=== PATIENT | female | born 1970 | race Caucasian/White ===

== ENCOUNTER → 2017-06-15 | Outpatient (CLI) | payer OTHER ==
--- NOTE | 2017-06-16 08:56 | MM ---
Reason for exam: additional evaluation requested from prior study. Baseline mammogram. History: Family history of breast cancer in maternal cousin at age 40. Physical Findings: Nurse did not find any significant physical abnormalities on exam. MG Diagnostic Mammo w CAD GIANNI Bilateral CC and MLO view(s) were taken. The breast tissue is heterogeneously dense. This may lower the sensitivity of mammography. There are rounded masses in the right upper outer quadrant at posterior depth, left upper outer quadrant at posterior depth and left upper inner quadrant at anterior depth. These results were verbally communicated with the patient and result sheet given to the patient on 06/15/17. ASSESSMENT: Incomplete: need additional imaging evaluation, BI-RAD 0 RECOMMENDATION: Ultrasound of both breasts. (left upper and right upper outer quadrant)
--- NOTE | 2017-06-16 09:21 | USB ---
Reason for exam: additional evaluation requested from abnormal screening. History: Family history of breast cancer in maternal cousin at age 40. US Breast Limited BILAT Right breast ultrasound demonstrates a 0.8 x 0.4 x 0.8cm oval questionable node at 9 o'clock and a 0.6 x 0.3 x 0.5cm oval node at 9 o'clock. Left breast ultrasound demonstrates a 0.6 x 0.5 x 0.5cm cystic lesion at 9 o'clock, a 0.5 x 0.3 x 0.4cm mixed lesion at the posterior nipple irregular margins and no increase through transmission and a 0.7 x 0.4 x 0.6cm node at 3 o'clock. These results were verbally communicated with the patient and result sheet given to the patient on 06/15/17. ASSESSMENT: Suspicious, BI-RAD 4 RECOMMENDATION: Ultrasound core biopsy of the left breast. (posterior to nipple) Called Dr. Loco with mammographic findings and has scheduled an appointment for the patient for 07/23/17 at 9:[address] Shelley. Biopsy scheduled for 06/24/17 at 1:00. PRELIMINARY REPORT CALLED AND FAXED TO DR. SHELLEY ON 06/16/17.
== END | disposition home or self-care (01) ==
LOC: RADMAMWWP 12:09
PROVIDERS: ATTEND Family Medicine
DX: N63.10 Unspecified lump in the right breast, unspecified quadrant (principal); N63.20 Unspecified lump in the left breast, unspecified quadrant
CPT/HCPCS: 77066

== ENCOUNTER → 2017-06-24 | Day surgery (SDC) | payer OTHER ==
[2017-06-24 12:21] VITALS: RESP 15; TEMP 98.3; BMI 29.9
--- NOTE | 2017-06-24 15:42 | USB ---
EXAMINATION TYPE: US biopsy breast VAD LT, Postbiopsy MG diagnostic mammo LT wo CAD DATE OF EXAM: 06/24/2017 CLINICAL HISTORY: 46-year-old female R92.8 Abnormal mammogram. TECHNIQUE: Ultrasound guided core biopsy of the subareolar left breast. COMPARISON: 06/15/2017 FINDINGS: The procedure of ultrasound guided core biopsy was explained to the patient. Benefits, alternatives, and risks were discussed. An informed consent was then obtained. The patient was placed in supine positioning for imaging and for the procedure. The overlying skin was prepped and draped in usual sterile fashion. Lidocaine buffered with bicarbonate was used as anesthetic into the skin and subcutaneous tissue up to area of concern in the subareolar left breast. Under ultrasound guidance, a 13-gauge vacuum-assisted mammotome Elite biopsy gun device was used to obtain 4 core samples. Following this, a ribbon clip was left at the site of biopsy. The majority if not all of the lesion, which is suspected to be cystic, was removed with the multiple samples. The patient tolerated the procedure well without any immediate complication. The patient was kept in the radiology department for short stay after the procedure and then discharged home in stable condition. Postbiopsy mammogram shows ribbon clip in position 3:00 subareolar region. IMPRESSION: Successful, uncomplicated ultrasound guided core biopsy of suspected cystic lesion in the subareolar left breast, full pathology results to follow. Pathology Results: Benign LEFT BREAST, SITE NOT OTHERWISE SPECIFIED (CORE BIOPSIES): PROLIFERATIVE FIBROCYSTIC CHANGES. Recommendation Follow up mammogram of the left breast in 6 months. DAILY
[2017-06-24 16:27] VITALS: BP 109/68; PULSE 77
== END ==
LOC: RADUSWWP 11:26
PROVIDERS: ATTEND Surgery
DX: N60.12 Diffuse cystic mastopathy of left breast (principal)
CPT/HCPCS: 88305; 77065; 19083; A4648; J2001

== ENCOUNTER → 2017-09-14 | Outpatient (CLI) | payer OTHER ==
[2017-09-14 12:06] LABS: Basophils # (A) 0.1 k/uL (0-0.2); Basophils % (A) 1 %; Eosinophils # (A) 0.3 k/uL (0-0.7); Eosinophils % (A) 3 %; HCT 39.7 % (34.0-46.0); HGB 13.7 gm/dL (11.4-16.0); Lymphocytes # (A) 2.5 k/uL (1.0-4.8); Lymphocytes % (A) 25 %; MCH 30.8 pg (25.0-35.0); MCHC 34.4 g/dL (31.0-37.0); MCV 89.6 fL (80.0-100.0); Mean Platelet Volume 7.3; Monocytes # (A) 0.5 k/uL (0-1.0); Monocytes % (A) 5 %; Neutrophils # (A) 6.6 k/uL (1.3-7.7); Neutrophils % (A) 65 %; Platelet Count 237 k/uL (150-450); RBC 4.43 m/uL (3.80-5.40); RDW 13.8 % (11.5-15.5); WBC 10.1 k/uL (3.8-10.6)
== END | disposition home or self-care (01) ==
LOC: LABWHC1 11:21
PROVIDERS: ATTEND Obstetrics & Gynecology Obstetrics
DX: Z01.812 Encounter for preprocedural laboratory examination (principal); N93.8 Other specified abnormal uterine and vaginal bleeding
CPT/HCPCS: 36415; 85025

== ENCOUNTER 2017-09-29 09:03 | Day surgery (SDC) | payer OTHER ==
[2017-09-22 11:38] VITALS: BMI 30.7
--- NOTE | 2017-09-24 15:15 | HP ---
HISTORY AND PHYSICAL DATE OF SURGERY: 09/29/2017 HPI: This is a very pleasant 46-year-old female, 3, para 2-0-1-2 with known last menstrual period in August. Patient has been noticing dysfunctional uterine bleeding and was seen in the office for endometrial biopsy. Biopsy was performed without difficulty and came back negative in nature end of July. The patient is noting menstrual cycles to be every 2 weeks with moderate to heavy flow at times, lasting 5 days. She is noting some nausea at the time of her menstrual cycle secondary to the heavier flow days. She was interested in endometrial ablation. Therefore, this was scheduled at this appointment. PAST MEDICAL HISTORY: Significant for an abnormal Pap smear that was obtained in May of 2017, asthma, obesity. PAST SURGICAL HISTORY: Appendectomy and wisdom teeth extraction. REPRODUCTIVE HISTORY: She experienced menarche at age 11. She is a known 3, para 2-0-1-2. Menstrual cycles are noted to be irregular, approximately every 2 weeks with a heavy flow lasting 5 days when they do come. PHYSICAL EXAM: In general, she is in no acute distress. CARDIOVASCULAR: She is noted to have a regular rate and rhythm. PULMONARY: Clear to auscultation bilaterally. GENITOURINARY: External vaginal anatomy is noted to be normal in nature and appropriate for age. Vaginal vault is noted to be pink and well rugated. The cervix is without lesion. The uterus is noted to be normal in size, anteverted with no adnexal masses. ASSESSMENT: Dysfunctional uterine bleeding. PLAN: We will plan endometrial ablation, hysteroscopy, dilation and curettage to evaluate the uterine cavity prior to endometrial ablation. Risks were reviewed with the patient in detail including, but not limited to, uterine perforation, hematometra, and failure of the procedure itself. Pamphlet was given to the patient prior to her scheduling this procedure in addition. All questions were answered at this appointment, and informed consent was obtained. We will proceed with hysteroscopy, dilation and curettage, endometrial ablation. MMODL / IJN: [id number] /
[~2017-09-29 09:03] MED LIST: DEXAMETHASONE SOD PHOSPHATE 10 MG/ML 1 ML VIAL IV ONE; LIDOCAINE 1% 20 ML VIAL (10MG/ML) FOR IV START INTRADERMA PRN; ONDANSETRON 4 MG/2 ML VIAL IVP ONE; SCOPOLAMINE 1.5MG/72HR PATCH TRANSDERM ONE
[2017-09-29] MEDS: LACTATED RINGERS 1,000 ML IV SCH ×2 (09:55→10:59)
[2017-09-29] MEDS: ACETAMINOPHEN IV (For NPO) 1,000 MG in EMPTY BAG 1 BAG IVPB ONE ×2 (09:56→10:39)
[2017-09-29] MEDS ORDERED: KETOROLAC 30 MG/ML 1 ML VIAL ONE (11:01)
[2017-09-29] MEDS ORDERED: fentaNYL (PF) 50 MCG/ML 2 ML AMP ONE (11:01)
[2017-09-29] MEDS ORDERED: LIDOCAINE 1% INJ 10MG/ML (20 ML MDV) ONE (11:01)
[2017-09-29] MEDS ORDERED: HYDROmorphone (PF) 1 MG/ML ONE (11:01)
[2017-09-29] MEDS ORDERED: PROPOFOL 10 MG/ML 20 ML VIAL IV ONE (11:01)
[2017-09-29] MEDS ORDERED: MIDAZOLAM 2 MG/2 ML VIAL ONE (11:01)
[2017-09-29] MEDS ORDERED: SILVER NITRATE APPLICATOR 1 EACH STICK..EA. TOPICAL ONE (11:22)
[2017-09-29] MEDS: HYDROmorphone 0.5 MG/0.5 ML SYRINGE IVP PRN ×2 (11:50→11:59)
[2017-09-29 11:54] VITALS: TEMP 97.5
[2017-09-29 12:11] VITALS: RESP 16
--- NOTE | 2017-09-29 12:22 | P.OP ---
Date of Procedure: 09/29/17 Preoperative Diagnosis: Menomenorrhagia Postoperative Diagnosis: Same Procedure(s) Performed: Hysteroscopy, dilation and curettage, endometrial ablation with NovaSure Anesthesia: MAC Surgeon: Abbey Mcnulty Estimated Blood Loss (ml): 5 Urine output (ml): 100 Pathology: other (Endometrial curettings) Condition: stable Disposition: PACU Indications for Procedure: Heavy irregular menstrual cycles Operative Findings: Proliferative endometrial cavity Description of Procedure: Patient was seen in the preoperative suite and procedure and risks were reviewed in detail informed consent was obtained. Patient was then taken to the operating suite where general anesthesia was obtained without difficulty by the anesthesia department. She was then prepped and draped in the normal sterile fashion in the dorsal lithotomy position. A red rubber catheter was then used to drain the bladder of clear yellow urine. Weighted speculum was placed in the posterior vaginal vault the anterior lip of the cervix was visualized and grasped with a single-tooth tenaculum. Endocervical canal was then dilated to 18-Divehi hysteroscope was placed through the cervix and toward the endometrial cavity and a proliferative endometrium was noted. Sharp curettage was then performed until a gritty texture was noted in all 4 quadrants uterine cavity this was then sent to pathology for analysis. At this time the NovaSure device was opened and set to the patient's uterine measurements 4 cm length 2.74 with a power of 56 for a total time of 2 minutes. (This was completed after the cavity assessment was passed). The NovaSure device then removed without difficulty. Afterwards the tenaculum was taken off of the anterior lip of the cervix and hemostasis was noted. All counts are correct 2 patient tolerated procedure well and was taken to the recovery room awake and in stable condition.
[2017-09-29 14:27] VITALS: BP 132/78; PULSE 73
== END 2017-09-29 14:14 | disposition home or self-care (01) ==
LOC: OR 09:03
PROVIDERS: ATTEND Obstetrics & Gynecology Obstetrics
DX: N85.8 Other specified noninflammatory disorders of uterus (principal); N92.1 Excessive and frequent menstruation with irregular cycle; N93.8 Other specified abnormal uterine and vaginal bleeding; J45.909 Unspecified asthma, uncomplicated; E66.9 Obesity, unspecified; Z68.30 Body mass index [BMI] 30.0-30.9, adult; Z87.891 Personal history of nicotine dependence; N39.3 Stress incontinence (female) (male); Z79.899 Other long term (current) drug therapy
CPT/HCPCS: 81025; 88305; 58563; J2250; J1100; J2405; J2001; J3010; J1885; J1170 ×2; J0131; J2704

== ENCOUNTER → 2018-01-25 | Outpatient (CLI) | payer OTHER ==
--- NOTE | 2018-01-25 13:27 | MM ---
Reason for exam: follow-up at short interval from prior study. Last mammogram was performed 7 months ago. History: Family history of breast cancer in maternal cousin at age 40. Benign US biopsy breast VAD LT of the left breast, June 24, 2017. Physical Findings: Nurse did not find any significant physical abnormalities on exam. MG Diagnostic Mammo LT w CAD CC and MLO view(s) were taken of the left breast. Prior study comparison: June 24, 2017, left breast MG diagnostic mammo LT wo CAD. June 15, 2017, bilateral MG diagnostic mammo w CAD GIANNI. The breast tissue is heterogeneously dense. This may lower the sensitivity of mammography. Previous mammotome biopsy in the left breast. There is chronic nodularity in the left breast. No significant new findings when compared with previous films. These results were verbally communicated with the patient and result sheet given to the patient on 01/25/18. ASSESSMENT: Benign, BI-RAD 2 RECOMMENDATION: Routine screening mammogram of both breasts in 6 months. Back on schedule.
== END ==
LOC: RADMAMWWP 12:01
PROVIDERS: ATTEND Surgery
DX: R92.8 Other abnormal and inconclusive findings on diagnostic imaging of breast (principal)
CPT/HCPCS: 77065

== ENCOUNTER → 2018-07-02 | Outpatient (CLI) | payer OTHER ==
--- NOTE | 2018-07-03 22:14 | CT ---
EXAMINATION TYPE: CT abdomen pelvis w con DATE OF EXAM: 07/02/2018 COMPARISON: None INDICATION: Abdominal/pelvic pain and constipation x5 weeks. DLP: 1169 mGycm, Automated exposure control for dose reduction was used. CONTRAST: 100ml mL of Isovue 300. Study performed with Oral Contrast TECHNIQUE: Axial images were obtained from above the diaphragm to the pubic rami in the axial plane a t 5 mm thick sections. Reconstructed images are reviewed on the computer in the coronal plane. FINDINGS: Limited CT sections are obtained the lung bases. The lung bases are clear. CT ABDOMEN: Liver: Normal Spleen: Normal Pancreas: Normal Adrenal glands: The adrenal glands are normal. Gallbladder: Normal Kidneys: No masses are evident. No hydronephrosis is present. No cysts are present. Delayed images were obtained through the kidneys, which remain unremarkable. Aorta: Minimal Vascular calcification is within the aorta. Inferior vena cava: Normal. CT PELVIS: Loops of bowel within the abdomen and pelvis are normal. There are loops of bowel which are incom pletely distended or lack oral contrast limiting their evaluation. Cecum appears to be fluid-filled. Surgical clips from an appendectomy are present. Appendix: Surgically absent Urinary bladder: Normal. Genitourinary structures: Uterus is normal. Adnexal regions are normal. No free fluid is within the p karol. Osseous structures: No suspicious lytic or sclerotic lesions. IMPRESSIONS: 1. Nonspecific abdomen. No suspicious acute changes identified. 2. No significant fecal retention suggest constipation or obstruction.
== END ==
LOC: RADCTMAIN 15:36
PROVIDERS: ATTEND Family Medicine
DX: R10.9 Unspecified abdominal pain (principal)
CPT/HCPCS: 74177; Q9967

== ENCOUNTER 2018-07-10 18:53 | Emergency (ER) | payer OTHER ==
[2018-07-10 18:59] VITALS: TEMP 97.4
[2018-07-10] MEDS ORDERED: SODIUM CHLORIDE 0.9% 1,000 ML IV STA (19:24)
[2018-07-10] MEDS ORDERED: ONDANSETRON 4 MG/2 ML VIAL IVP STA (19:24)
[2018-07-10] MEDS ORDERED: KETOROLAC 30 MG/ML 1 ML VIAL IVP STA (19:24)
[2018-07-10] MEDS ORDERED: FAMOTIDINE 20 MG/2 ML VIAL IV STA (19:24)
--- NOTE | 2018-07-10 19:28 | ED ---
General Adult HPI - General Source: patient, RN notes reviewed Mode of arrival: ambulatory Limitations: no limitations <Shaw Johnson P - Last Filed: 07/10/18 21:24> <Zandra Zuleta P - Last Filed: 07/11/18 21:41> - General Chief complaint: Abdominal Pain Stated complaint: constipation Time Seen by Provider: 07/10/18 19:05 - History of Present Illness Initial comments: 47-year-old female with a past medical history of stress incontinence, UTI, appendectomy presents to the emergency department for a chief complaint of constipation. Patient states she has been constipated for 7 weeks. She states she has not been able to have a significant bowel movement in that time. States that she takes Dulcolax in the morning and then proceeds to have 3 bowel movements consisting of mucus and liquid as well as some small clumps of stool. Patient denies hematochezia or melena. States that she followed up with primary care was told she was constipated and made an appointment with Dr. Ortiz. States that she has a colonoscopy scheduled in 8 days but they states she needs to be able to produce a bowel movement to be able to do this. Patient has no other complaints at this time including shortness of breath, chest pain, abdominal pain, headache, or visual changes. (Shaw Johnson) - Related Data Home Medications Medication Instructions Recorded Confirmed Anti-Nausea 1 each PO DAILY PRN 06/29/18 Lidocaine 5% Patch [Lidoderm] 2 patch TOPICAL DAILY PRN 06/29/18 06/29/18 Naproxen Sodium [Aleve] 440 mg PO DAILY 06/29/18 06/29/18 Omeprazole 20 mg PO DAILY PRN 06/29/18 06/29/18 Oxybutynin Chloride [Ditropan XL] 10 mg PO BID 06/29/18 06/29/18 Polyethylene Glycol 3350 [Miralax] 17 gm PO DAILY 06/29/18 06/29/18 Psyllium Husk [Metamucil] 2 gm PO BID 06/29/18 06/29/18 Stool Softner 1 each PO BID 06/29/18 Previous Rx's Medication Instructions Recorded Ondansetron [Zofran ODT] 4 mg PO Q8HR PRN #15 tab 07/10/18 Allergies Allergy/AdvReac Type Severity Reaction Status Date / Time cat dander Allergy Intermediate sneezing Verified 07/10/18 19:00 dog dander Allergy Intermediate sneezing Verified 07/10/18 19:00 house dust Allergy Intermediate sneezing Verified 07/10/18 19:00 mold Allergy Intermediate sneezing Verified 07/10/18 19:00 chicken derived [Chicken] Allergy Anaphylaxis Verified 07/10/18 19:01 corn Allergy Anaphylaxis Verified 07/10/18 19:01 egg Allergy Anaphylaxis Verified 07/10/18 19:01 Fish Containing Products Allergy Anaphylaxis Verified 07/10/18 19:01 [Fish] Pork/Porcine Containing Allergy Anaphylaxis Verified 07/10/18 19:01 Products [Pork] tree nut [Nut] Allergy Anaphylaxis Verified 07/10/18 19:01 Review of Systems ROS Other: All systems not noted in ROS Statement are negative. <Shaw Johnson P - Last Filed: 07/10/18 21:24> ROS Other: All systems not noted in ROS Statement are negative. <Zandra Zuleta P - Last Filed: 07/11/18 21:41> ROS Statement: Those systems with pertinent positive or pertinent negative responses have been documented in the HPI. Past Medical History Additional Past Medical History / Comment(s): stress incontinence, UTI History of Any Multi-Drug Resistant Organisms: None Reported Past Surgical History: Appendectomy Past Anesthesia/Blood Transfusion Reactions: No Reported Reaction Additional Past Anesthesia/Blood Transfusion Reaction / Comment(s): No transfusion to date Past Psychological History: No Psychological Hx Reported Smoking Status: Current every day smoker - Past Family History Mother Additional Family Medical History / Comment(s): Mother and mother's sister have benign breast cysts, patient's maternal cousin was dx with breast cancer at age ~45 <Shaw Johnson P - Last Filed: 07/10/18 21:24> General Exam Limitations: no limitations General appearance: alert, in no apparent distress Head exam: Present: atraumatic, normocephalic, normal inspection Eye exam: Present: normal appearance, PERRL, EOMI. Absent: scleral icterus, conjunctival injection, periorbital swelling ENT exam: Present: normal exam, mucous membranes moist Neck exam: Present: normal inspection, full ROM. Absent: tenderness, meningismus, lymphadenopathy Respiratory exam: Present: normal lung sounds bilaterally. Absent: respiratory distress, wheezes, rales, rhonchi, stridor Cardiovascular Exam: Present: regular rate, normal rhythm, normal heart sounds. Absent: bradycardia, tachycardia, irregular rhythm GI/Abdominal exam: Present: soft, tenderness (generalized tenderness noted of the abdomen). Absent: distended, guarding, rebound, rigid Expanded GI/Abdominal exam: Absent: Morris's sign <Shaw Johnson - Last Filed: 07/10/18 21:24> Course <Shaw Johnson - Last Filed: 07/10/18 21:24> Vital Signs 07/10/18 07/10/18 18:57 21:43 Temperature 97.4 F L Pulse Rate 90 71 Respiratory 18 16 Rate Blood Pressure 153/78 153/74 O2 Sat by Pulse 98 98 Oximetry - Reevaluation(s) Reevaluation #1: 07/10/18 19:27 CT radiology report was reviewed from 07/02/2018. Patient had a CT abdomen and pelvis with contrast 1 week ago which showed loops of bowel wall within the abdomen and pelvis being normal. There loops of bowel which are incompletely distended. Cecum appears to be fluid filled. No significant fecal retention to suggest constipation or obstruction. (Shaw Johnson) Medical Decision Making - Lab Data Result diagrams: 07/10/18 19:40 07/10/18 19:40 <Shaw Johnson P - Last Filed: 07/10/18 21:24> - Lab Data Result diagrams: 07/10/18 19:40 07/10/18 19:40 <Zandra Zuleta P - Last Filed: 07/11/18 21:41> - Medical Decision Making 47-year-old female with a past medical history of stress incontinence, UTI, appendectomy presents for a chief complaint constipation 7 weeks. Patient states she has had small bowel movements with mucus daily. Denies any hematochezia or melena. Patient states she is here is she is supposed to have a colonoscopy an 8 days and was told that she cannot produce clear bowel movements at that time she cannot have a colonoscopy. States that she would like to know whether she could get this or not. I did the patient that I will not be until her that however they we'll put her on a bowel regimen before the colonoscopy but she will need to speak with the ticket maker about this. However I did do some lab work. CBC does show a white count 12 likely reactive. Glucose 72, patient given juice. CMP otherwise unremarkable. Amylase and lipase within normal limits. Urinalysis negative. Patient had a CT 7 days ago that did not show any significant fecal retention or other cause for abdominal pain. I did order an abdomen x-ray which was read as nonacute by Dr. Altamirano. No sign of obstruction or pneumoperitoneum. Fecal pattern is normal. CT was not repeated as this was only done 7 days ago. At this time I discussed following up with her GI doctor for this in importance of attending her colonoscopy in one week. Patient will be given Zofran for nausea although she has not vomited at home. She will return here if she has any worsening symptoms. (Shaw Johnson) I was available for consultation in the emergency department. The history and physical exam were done by the midlevel provider. I was consulted for this patient's care. I reviewed the case with the midlevel provider and based on their presentation of the patient, I agree with the assessment, medical decision making and plan of care as documented. (Zandra Zuleta) - Lab Data Lab Results 07/10/18 07/10/18 07/10/18 Range/Units 19:40 19:40 19:40 WBC 12.5 H (3.8-10.6) k/uL RBC 4.49 (3.80-5.40) m/uL Hgb 13.4 (11.4-16.0) gm/dL Hct 41.2 (34.0-46.0) % MCV 91.9 (80.0-100.0) fL MCH 30.0 (25.0-35.0) pg MCHC 32.6 (31.0-37.0) g/dL RDW 13.4 (11.5-15.5) % Plt Count 255 (150-450) k/uL Neutrophils % 64 % Lymphocytes % 26 % Monocytes % 5 % Eosinophils % 4 % Basophils % 1 % Neutrophils # 7.9 H (1.3-7.7) k/uL Lymphocytes # 3.3 (1.0-4.8) k/uL Monocytes # 0.6 (0-1.0) k/uL Eosinophils # 0.5 (0-0.7) k/uL Basophils # 0.1 (0-0.2) k/uL Sodium 140 (137-145) mmol/L Potassium 3.8 (3.5-5.1) mmol/L Chloride 109 H (98-107) mmol/L Carbon Dioxide 24 (22-30) mmol/L Anion Gap 7 mmol/L BUN 9 (7-17) mg/dL Creatinine 0.82 (0.52-1.04) mg/dL Est GFR (CKD-EPI)AfAm >90 (>60 ml/min/1.73 sqM) Est GFR (CKD-EPI)NonAf 84 (>60 ml/min/1.73 sqM) Glucose 72 L (74-99) mg/dL Calcium 9.2 (8.4-10.2) mg/dL Total Bilirubin 0.5 (0.2-1.3) mg/dL AST 31 (14-36) U/L ALT 53 H (9-52) U/L Alkaline Phosphatase 130 H (38-126) U/L Total Protein 7.1 (6.3-8.2) g/dL Albumin 3.9 (3.5-5.0) g/dL Amylase 45 (30-110) U/L Lipase 143 (23-300) U/L Urine Color Colorless Urine Appearance Clear (Clear) Urine pH 6.0 (5.0-8.0) Ur Specific Elsie 1.002 (1.001-1.035) Urine Protein Negative (Negative) Urine Glucose (UA) Negative (Negative) Urine Ketones Negative (Negative) Urine Blood Negative (Negative) Urine Nitrite Negative (Negative) Urine Bilirubin Negative (Negative) Urine Urobilinogen <2.0 (<2.0) mg/dL Ur Leukocyte Esterase Negative (Negative) Urine HCG, Qual (Not Detectd) 07/10/18 Range/Units 19:40 WBC (3.8-10.6) k/uL RBC (3.80-5.40) m/uL Hgb (11.4-16.0) gm/dL Hct (34.0-46.0) % MCV (80.0-100.0) fL MCH (25.0-35.0) pg MCHC (31.0-37.0) g/dL RDW (11.5-15.5) % Plt Count (150-450) k/uL Neutrophils % % Lymphocytes % % Monocytes % % Eosinophils % % Basophils % % Neutrophils # (1.3-7.7) k/uL Lymphocytes # (1.0-4.8) k/uL Monocytes # (0-1.0) k/uL Eosinophils # (0-0.7) k/uL Basophils # (0-0.2) k/uL Sodium (137-145) mmol/L Potassium (3.5-5.1) mmol/L Chloride (98-107) mmol/L Carbon Dioxide (22-30) mmol/L Anion Gap mmol/L BUN (7-17) mg/dL Creatinine (0.52-1.04) mg/dL Est GFR (CKD-EPI)AfAm (>60 ml/min/1.73 sqM) Est GFR (CKD-EPI)NonAf (>60 ml/min/1.73 sqM) Glucose (74-99) mg/dL Calcium (8.4-10.2) mg/dL Total Bilirubin (0.2-1.3) mg/dL AST (14-36) U/L ALT (9-52) U/L Alkaline Phosphatase (38-126) U/L Total Protein (6.3-8.2) g/dL Albumin (3.5-5.0) g/dL Amylase (30-110) U/L Lipase (23-300) U/L Urine Color Urine Appearance (Clear) Urine pH (5.0-8.0) Ur Specific Elsie (1.001-1.035) Urine Protein (Negative) Urine Glucose (UA) (Negative) Urine Ketones (Negative) Urine Blood (Negative) Urine Nitrite (Negative) Urine Bilirubin (Negative) Urine Urobilinogen (<2.0) mg/dL Ur Leukocyte Esterase (Negative) Urine HCG, Qual Not Detected (Not Detectd) Disposition Is patient prescribed a controlled substance at d/c from ED?: No Time of Disposition: 21:18 <Shaw Johnson P - Last Filed: 07/10/18 21:24> <Zandra Zuleta P - Last Filed: 07/11/18 21:41> Clinical Impression: Abdominal pain Disposition: HOME SELF-CARE Condition: Good Instructions (If sedation given, give patient instructions): Constipation (ED), High Fiber Diet (ED), Abdominal Pain (ED) Additional Instructions: Please continue to take MiraLAX at home. Please follow-up with your GI doctor on Thursday. If you have any worsening symptoms or restraints fevers return here to the emergency department. Prescriptions: Ondansetron [Zofran ODT] 4 mg PO Q8HR PRN #15 tab PRN Reason: Nausea Referrals: Leonardo Loco MD [Primary Care Provider] - 1-2 days Aden Ortiz MD [STAFF PHYSICIAN] - 1-2 days
[2018-07-10 19:54] LABS: Basophils # (A) 0.1 k/uL (0-0.2); Basophils % (A) 1 %; Eosinophils # (A) 0.5 k/uL (0-0.7); Eosinophils % (A) 4 %; HCT 41.2 % (34.0-46.0); HGB 13.4 gm/dL (11.4-16.0); Lymphocytes # (A) 3.3 k/uL (1.0-4.8); Lymphocytes % (A) 26 %; MCHC 32.6 g/dL (31.0-37.0); MCV 91.9 fL (80.0-100.0); Mean Platelet Volume 8.3; Monocytes # (A) 0.6 k/uL (0-1.0); Monocytes % (A) 5 %; Neutrophils # (A) 7.9 k/uL (1.3-7.7); Neutrophils % (A) 64 %; Platelet Count 255 k/uL (150-450); RBC 4.49 m/uL (3.80-5.40); RDW 13.4 % (11.5-15.5); WBC 12.5 k/uL (3.8-10.6)
[2018-07-10 19:56] LABS: Appearance,Urine Clear (Clear); Bilirubin,Urine Negative (Negative); Blood,Urine Negative (Negative); Color,Urine Colorless; Glucose,Urine (UA) Negative (Negative); Ketones,Urine Negative (Negative); Leukocyte Esterase,Urine Negative (Negative); Nitrite,Urine Negative (Negative); Protein,Urine Negative (Negative); Urobilinogen,Urine <2.0 mg/dL (<2.0)
[2018-07-10 20:07] LABS: ALT 53 U/L (9-52); AST 31 U/L (14-36); Albumin 3.9 g/dL (3.5-5.0); Alkaline Phosphatase 130 U/L (38-126); Amylase 45 U/L (30-110); Anion Gap 7 mmol/L; Blood Urea Nitrogen 9 mg/dL (7-17); Calcium 9.2 mg/dL (8.4-10.2); Carbon Dioxide 24 mmol/L (22-30); Chloride 109 mmol/L (98-107); Glucose 72 mg/dL (74-99); Lipase 143 U/L (23-300); Potassium 3.8 mmol/L (3.5-5.1); Sodium 140 mmol/L (137-145); Total Bilirubin 0.5 mg/dL (0.2-1.3); Total Protein 7.1 g/dL (6.3-8.2)
[2018-07-10 20:13] LABS: Specific Gravity,Urine 1.002 (1.001-1.035)
--- NOTE | 2018-07-10 20:36 | XR ---
EXAMINATION TYPE: XR abdomen 2V DATE OF EXAM: 07/10/2018 COMPARISON: NONE HISTORY: Pain TECHNIQUE: 2 views FINDINGS: There is no sign of intestinal obstruction or pneumoperitoneum. Fecal pattern is normal. Th ere are clips over the right iliac bone. Lung bases are clear. There are no pathologic calcifications over the kidneys. IMPRESSION: Nonacute abdomen.
[2018-07-10] MEDS ORDERED: MORPHINE SULFATE 4 MG/ML SYRINGE IVP STA (21:08)
[2018-07-10 21:44] VITALS: BP 153/74; PULSE 71; RESP 16
== END 2018-07-10 21:44 | disposition home or self-care (01) ==
LOC: EC 18:53
DX: R10.9 Unspecified abdominal pain (principal); R11.0 Nausea; R10.817 Generalized abdominal tenderness; F17.200 Nicotine dependence, unspecified, uncomplicated; Z90.89 Acquired absence of other organs; Z79.1 Long term (current) use of non-steroidal anti-inflammatories (NSAID); Z79.899 Other long term (current) drug therapy; Z91.09 Other allergy status, other than to drugs and biological substances; Z91.018 Allergy to other foods; Z91.012 Allergy to eggs; Z91.013 Allergy to seafood
CPT/HCPCS: 36415; 80053; 82150; 83690; 85025; 81003; 81025; 74019; 99284; 96374; 96375 ×3; 96361; J2270; J2405; J1885

== ENCOUNTER 2018-07-15 12:10 | Day surgery (SDC) | payer OTHER ==
[2018-07-14 09:10] VITALS: BMI 28.4
[~2018-07-15 12:10] MED LIST changes: -DEXAMETHASONE SOD PHOSPHATE 10 MG/ML 1 ML VIAL IV ONE; +LACTATED RINGERS 1,000 ML IV SCH; -LIDOCAINE 1% 20 ML VIAL (10MG/ML) FOR IV START INTRADERMA PRN; -ONDANSETRON 4 MG/2 ML VIAL IVP ONE; -SCOPOLAMINE 1.5MG/72HR PATCH TRANSDERM ONE
[2018-07-15 12:41] VITALS: RESP 16; TEMP 97.9
[2018-07-15] MEDS ORDERED: LIDOCAINE 1% 20 ML VIAL (10MG/ML) FOR IV START INTRADERMA ONE (12:45)
[2018-07-15] MEDS ORDERED: LIDOCAINE 1% INJ 10MG/ML (20 ML MDV) ONE (13:27)
[2018-07-15] MEDS ORDERED: fentaNYL (PF) 50 MCG/ML 2 ML AMP ONE (13:27)
[2018-07-15] MEDS ORDERED: PROPOFOL 10 MG/ML 20 ML VIAL IV ONE (13:27)
[2018-07-15] MEDS ORDERED: MIDAZOLAM 2 MG/2 ML VIAL ONE (13:27)
--- NOTE | 2018-07-15 14:20 | P.PCN ---
Date of Procedure: 07/15/18 Procedure(s) Performed: Procedures: 1. Esophagogastroduodenoscopy and biopsy. 2. Total colonoscopy. Preoperative diagnosis: Epigastric pain and change in bowel habits. Postoperative diagnosis: 1. Sliding hiatal hernia and LA grade B distal esophagitis. 2. Antral gastritis. 3. Multiple biopsies obtained from the duodenum, antrum and esophagus. 4. Colon exam within normal limits. Preparation: HalfLytely prep. Sedation: Was provided by anesthesia. Brief clinical history: The patient is a 47-year-old female who is scheduled for this evaluation because of chronic epigastric pain and constipation. Has history of acid reflux currently on omeprazole therapy. No alarm symptoms. At her age she was recommended an upper endoscopy and colonoscopy. Procedure: With the patient on her left lateral decubitus position and after informed consent and adequate sedation, I passed the Olympus-GIF H 190 video upper endoscope through the cricopharyngeus down the esophagus. GE junction was around 36 cm from the incisors and there was a sliding hiatal hernia measuring between 1-2 cm. The distal esophagus showed evidence of LA grade B distal esophagitis with multiple short linear erosions but no ulcers, strictures or any definite Chavez's esophagus. The endoscope was then passed into the stomach which was insufflated with air and inspected in detail including the retroflex view in the cardia. There was some mottling and erythema in the antrum and some submucosal hemorrhages consistent with gastritis but no ulcers or bleeding. Pyloric channel, duodenal bulb, post bulbar area and descending duodenum appeared within normal limits. I obtained biopsies from the duodenum, antrum and esophagus then the endoscope was withdrawn and I proceeded to perform the colonoscopy. Perianal area did not show any fissures or fistulas. There were no masses felt on digital rectal examination. The Olympus CFH 190L video colonoscope was then inserted in the rectum in the usual fashion and advanced to the cecum. The mucosa appeared healthy. There were no obvious polyps or tumors or any obvious diverticular disease or other pathology. I retroflexed the endoscope in the rectum before the endoscope was withdrawn. Low-grade internal hemorrhoids were noted with no evidence of bleeding. The patient tolerated the procedure well. Plan: The patient was reassured. She will continue antireflux diet and measures and omeprazole on arrival acid suppressive therapy. Discussed dietary measures for her constipation and local care for hemorrhoids. She will follow-up with you as planned and I will be happy to see in the office if her symptoms persist.
[2018-07-15 14:31] VITALS: BP 135/79; PULSE 61
== END 2018-07-15 15:10 | disposition home or self-care (01) ==
LOC: ORWHC2ENDO 12:10
DX: K29.50 Unspecified chronic gastritis without bleeding (principal); K21.0 Gastro-esophageal reflux disease with esophagitis; K44.9 Diaphragmatic hernia without obstruction or gangrene; K64.8 Other hemorrhoids; F17.210 Nicotine dependence, cigarettes, uncomplicated; Z79.899 Other long term (current) drug therapy
CPT/HCPCS: 81025; 88305; 45378; 43239; J2250; J2001; J3010; J2704

== ENCOUNTER → 2019-07-29 | Outpatient (CLI) | payer OTHER ==
--- NOTE | 2019-07-29 11:25 | US ---
EXAMINATION TYPE: US venous doppler duplex LE DATE OF EXAM: 07/29/2019 10:54 AM COMPARISON: NONE CLINICAL HISTORY: R60.9 3 plus pitting edema. SIDE PERFORMED: Bilateral TECHNIQUE: The lower extremity deep venous system is examined utilizing real time linear array sonog beltran with graded compression, doppler sonography and color-flow sonography. VESSELS IMAGED: External Iliac Vein (EIV) Common Femoral Vein Deep Femoral Vein Greater Saphenous Vein * Femoral Vein Popliteal Vein Small Saphenous Vein * Proximal Calf Veins (* superficial vessels) Grayscale, color doppler, spectral doppler imaging performed of the deep veins of the lower extremiti es. There is normal flow, compressibility, vascular waveforms. Right Leg: Negative for DVT Left Leg: Negative for DVT IMPRESSION: No sonographic evidence of deep venous arthrosis within either the visualized bilateral lower extremities.
== END | disposition home or self-care (01) ==
LOC: RADUSWWP 10:52
PROVIDERS: ATTEND Physician Assistant
DX: R60.9 Edema, unspecified (principal)
CPT/HCPCS: 93970

== ENCOUNTER → 2019-08-02 | Outpatient (CLI) | payer OTHER ==
--- NOTE | 2019-08-03 11:00 | ECHOF ---
Referral Reason:R07.89 atypical chest pain MEASUREMENTS -------- HEIGHT: 167.6 cm WEIGHT: 83.5 kg BP: RVIDd: 3.6 cm (< 3.3) IVSd: 1.2 cm (0.6 - 1.1) LVIDd: 4.3 cm (3.9 - 5.3) LVPWd: 1.2 cm (0.6 - 1.1) IVSs: 1.4 cm LVIDs: 2.9 cm LVPWs: 1.4 cm LA Diam: 3.6 cm (2.7 - 3.8) LAESV Index (A-L): 14.43 ml/m Ao Diam: 3.1 cm (2.0 - 3.7) AV Cusp: 2.1 cm (1.5 - 2.6) MV EXCURSION: 10.270 mm (> 18.000) MV EF SLOPE: 53 mm/s (70 - 150) EPSS: 0.8 cm MV E Stephen: 1.19 m/s MV DecT: 160 ms MV A Stephen: 0.97 m/s MV E/A Ratio: 1.23 AV maxP.05 mmHg AV meanP.17 mmHg AR PHT: 387 ms FINDINGS -------- Sinus rhythm. This was a technically adequate study. The left ventricular size is normal. There is borderline concentric left ventricular hypertrophy. Overall left ventricular systolic function is normal with, an EF between 60 - 65 %. The right ventricle is mildly enlarged. The left atrial size is normal. The right atrium is normal in size. Patent foramen ovale present with right to left shunt. There is mild aortic valve sclerosis. There is dbfscnct-sm-obomed aortic regurgitation. The mitral valve leaflets are mildly thickened. The tricuspid valve appears structurally normal. Trace/mild (physiologic) pulmonic regurgitation. The aortic root size is normal. Normal inferior vena cava with normal inspiratory collapse consistent with estimated right atrial pre ssure of 5 mmHg. There is no pericardial effusion. CONCLUSIONS -------- 1. Sinus rhythm. 2. This was a technically adequate study. 3. The left ventricular size is normal. 4. There is borderline concentric left ventricular hypertrophy. 5. Overall left ventricular systolic function is normal with, an EF between 60 - 65 %. 6. The right ventricle is mildly enlarged. 7. The left atrial size is normal. 8. The right atrium is normal in size. 9. Patent foramen ovale present with right to left shunt. 10. There is mild aortic valve sclerosis. 11. There is eutsfrud-rc-sgvqdy aortic regurgitation. 12. The mitral valve leaflets are mildly thickened. 13. The tricuspid valve appears structurally normal. 14. Trace/mild (physiologic) pulmonic regurgitation. 15. The aortic root size is normal. 16. Normal inferior vena cava with normal inspiratory collapse consistent with estimated right atrial pressure of 5 mmHg. 17. There is no pericardial effusion. GAUNTLET PAIRER: CARSON Smith
== END | disposition home or self-care (01) ==
LOC: RADECHMAIN 11:59
PROVIDERS: ATTEND Family Medicine
DX: I08.0 Rheumatic disorders of both mitral and aortic valves (principal)
CPT/HCPCS: 93306

== ENCOUNTER → 2019-11-17 | Day surgery (SDC) | payer OTHER ==
[2019-11-10 15:57] VITALS: BMI 30.9
[~2019-11-17] MED LIST changes: +DEXAMETHASONE SOD PHOSPHATE 10 MG/ML 1 ML VIAL IV ONE; +GELATIN SPONGE,ABSORB (SMALL) 1 EACH SPONGE TOPICAL ONE; +LACTATED RINGERS 1,000 ML IV ONE; +LIDOCAINE 1% INJ 10MG/ML (20 ML MDV) ONE; +LIDOCAINE 2%-EPI 1:100,000 20 ML VIAL SUBMUCOSAL ONE; +MIDAZOLAM 2 MG/2 ML VIAL ONE; +ONDANSETRON 4 MG/2 ML VIAL IVP ONE; +ONDANSETRON 4 MG/2 ML VIAL ONE; +PROPOFOL 10 MG/ML 20 ML VIAL IV ONE; +SCOPOLAMINE 1.5MG/72HR PATCH TRANSDERM ONE; +SUCCINYLCHOLINE CHLORIDE 100 MG/5 ML SYR IV ONE; +fentaNYL (PF) 50 MCG/ML 2 ML AMP ONE; +metroNIDAZOLE-NS PMX 500 MG in SALINE 1 100ML.BAG IVPB ONE
[2019-11-17] MEDS: fentaNYL (PF) 50 MCG/ML 2 ML AMP IV PRN ×2 (08:42→08:55)
[2019-11-17 08:54] VITALS: RESP 16; TEMP 97
[2019-11-17 10:09] VITALS: BP 130/78; PULSE 70
--- NOTE | 2019-11-17 12:17 | OP ---
OPERATIVE REPORT DATE OF PROCEDURE: 11/17/2019. PREOPERATIVE DIAGNOSES: 1. Carious lesions. 2. Abscessed teeth. 3. Generalized moderate to severe periodontitis. POSTOPERATIVE DIAGNOSES: 1. Carious lesions. 2. Abscessed teeth. 3. Generalized moderate to severe periodontitis. PROCEDURE PERFORMED: Surgical extraction of all remaining teeth. Teeth numbers 3 through 15, 18 through 30. SURGEON: Dr. Mcgarry. ANESTHESIA: General via oral endotracheal intubation. ESTIMATED BLOOD LOSS: 5 mL. FLUIDS: Crystalloid. DRAINS: None. COMPLICATIONS: None. SPECIMENS: None. INDICATIONS FOR PROCEDURE: The patient is a 49-year-old female who is referred for the extraction of her teeth prior to having her aortic valve replaced. She has severe aortic insufficiency and requires immediate replacement. The steward dishwasher requested that the teeth be removed prior to the valve replacement. The risks, benefits, alternatives of the procedure were reviewed with the patient at length and all of her questions were answered to his satisfaction. PROCEDURE DETAILS: The patient was taken the operating room, placed on the operating table in the supine position. Next, the patient was prepped and draped in the usual manner. The patient was induced via the IV route and was intubated orally. General plane of anesthesia was maintained throughout the operative course. The surgeon approached the operative field. A throat pack was placed notifying both nursing and anesthesia. Next, 10 mL of 2% lidocaine with 1 to 100,000 parts epinephrine was used to provide a right and left inferior alveolar nerve block, buccal block, lingual block in addition to maxillary infiltration. Next, attention was directed to tooth #3 and 30 where an envelope flap was developed. Bone removal was performed and teeth numbers 3 and 30 were extracted utilizing an elevator and forceps technique. Next, the remaining teeth 18 through 29 and 4 through 15 were removed utilizing an elevator and forceps technique. The wounds were irrigated thoroughly. The patient tolerated the procedure well without complications. The throat pack was removed notifying both nursing and anesthesia. The patient was then transferred to the postanesthetic care unit, breathing spontaneously and hemodynamically stable. MMODL / IJN: [id number] /
== END ==
LOC: OR 06:38
PROVIDERS: ATTEND Dentist Oral and Maxillofacial Surgery
DX: K02.9 Dental caries, unspecified (principal); K04.7 Periapical abscess without sinus; K05.3 Chronic periodontitis; Q21.1 Atrial septal defect; I10 Essential (primary) hypertension; I25.10 Atherosclerotic heart disease of native coronary artery without angina pectoris; I35.1 Nonrheumatic aortic (valve) insufficiency; K21.9 Gastro-esophageal reflux disease without esophagitis; F41.9 Anxiety disorder, unspecified; F17.210 Nicotine dependence, cigarettes, uncomplicated; Z88.5 Allergy status to narcotic agent; Z91.018 Allergy to other foods; Z91.013 Allergy to seafood; Z91.09 Other allergy status, other than to drugs and biological substances; Z79.82 Long term (current) use of aspirin; Z79.899 Other long term (current) drug therapy; Z91.012 Allergy to eggs
CPT/HCPCS: 41899; J2250; J1100; J0690; J2405; J2001; J3010; J0330; J2704

== ENCOUNTER → 2019-12-16 | Outpatient (CLI) | payer OTHER ==
[2019-12-16 09:59] LABS: HGB 12.8 gm/dL (11.4-16.0); MCH 29.7 pg (25.0-35.0); MCHC 32.9 g/dL (31.0-37.0); MCV 90.3 fL (80.0-100.0); Mean Platelet Volume 7.9; Platelet Count 253 k/uL (150-450); RBC 4.32 m/uL (3.80-5.40); RDW 13.3 % (11.5-15.5)
[2019-12-16 10:06] LABS: Albumin 4.1 g/dL (3.5-5.0); Calcium 9.8 mg/dL (8.4-10.2); Magnesium 2.3 mg/dL (1.6-2.3); Potassium 4.3 mmol/L (3.5-5.1); Total Bilirubin 0.8 mg/dL (0.2-1.3); Total Protein 7.5 g/dL (6.3-8.2)
[2019-12-16 10:11] LABS: INR 0.9 (<1.2); Partial Thromboplastin Time 23.6 sec (22.0-30.0); Prothrombin Time 9.7 sec (9.0-12.0)
[2019-12-16 10:28] LABS: Appearance,Urine Clear (Clear); Bilirubin,Urine Negative (Negative); Blood,Urine Negative (Negative); Color,Urine Yellow; Glucose,Urine (UA) Negative (Negative); Ketones,Urine Negative (Negative); Leukocyte Esterase,Urine Negative (Negative); Nitrite,Urine Negative (Negative); PH, Urine 5.5 (5.0-8.0); Protein,Urine Negative (Negative); Specific Gravity,Urine 1.021 (1.001-1.035); Urobilinogen,Urine <2.0 mg/dL (<2.0)
--- NOTE | 2019-12-16 11:43 | US ---
EXAMINATION TYPE: US carotid duplex BILAT DATE OF EXAM: 12/16/2019 COMPARISON: NONE CLINICAL HISTORY: OPEN HEART. EXAM MEASUREMENTS: RIGHT: Peak Systolic Velocity (PSV) cm/sec ----- Right CCA: 114.2 ----- Right ICA: 127.3 ----- Right ECA: 91.0 ICA/CCA ratio: 1.1 RIGHT: End Diastole cm/sec ----- Right CCA: 27.0 ----- Right ICA: 43.0 ----- Right ECA: 12.5 LEFT: Peak Systolic Velocity (PSV) cm/sec ----- Left CCA: 88.1 ----- Left ICA: 86.4 ----- Left ECA: 75.0 ICA/CCA ratio: 1.0 LEFT: End Diastole cm/sec ----- Left CCA: 22.7 ----- Left ICA: 31.4 ----- Left ECA: 8.1 VERTEBRALS (direction of flow): Right Vertebral: Antegrade Left Vertebral: Antegrade Rhythm: Normal There is elevation of the right internal carotid artery velocity. Diffuse intimal thickening is prese nt. Focal stenosis is not identified IMPRESSION: 1. Mild elevation of the right internal carotid artery velocity suggesting mild narrowing between 50 and 69%. Criteria for Assigning % of Stenosis / Diameter reduction (Estimation based on the indirect measurements of the internal carotid artery velocities (ICA PSV). 1. Normal (no stenosis)=ICA PSV < 125 cm/s: ratio < 2.0: ICA EDV<40 cm/s. 2. Less than 50% stenosis=ICA PSV < 125 cm/s: ratio < 2.0: ICA EDV<40 cm/s. 3. 50 to 69% stenosis=ICA PSV of 125 to 230 cm/s: ration 2.0 ? 4.0: ICA EDV 40-100 cm/s. 4. Greater than 70% stenosis to near occlusion= ICA PSV > 230 cm/s: ratio > 4.0: ICA EDV > 100 cm/s. 5. Near occlusion= ICA PSV velocities may be low or undetectable: variable ratio and ICA EDV. 6. Total occlusion=unable to detect flow.
--- NOTE | 2019-12-16 14:51 | XR ---
EXAMINATION TYPE: XR chest 2V DATE OF EXAM: 12/16/2019 COMPARISON: None INDICATION: TECHNIQUE: Frontal and lateral views of the chest are obtained. FINDINGS: The heart size is normal. The pulmonary vasculature is normal. The lungs are clear. Spondylosis within the thoracic spine. IMPRESSION: 1. No acute pulmonary process.
[2019-12-16 16:56] LABS: Hemoglobin A1C 5.4 % (4.0-6.0)
[2019-12-16 19:32] LABS: Hepatitis A Antibody IgM Non-Reactive (Non-Reactive); Hepatitis B Core IgM Non-Reactive (Non-Reactive); Hepatitis B Surface Antigen Non-Reactive (Non-Reactive); Hepatitis C IgG Antibody Non-Reactive (Non-Reactive)
--- NOTE | 2019-12-19 10:02 | P.PN ---
Progress Note - Text Progress Note Date: 12/16/19 5 meter walk test was performed on 12/16/19 and patient tolerated well: #1 1.96 sec #2 2.08 sec #3 1.91 sec STS risk score was calculated at 1.88% and discussed with the patient.
--- NOTE | 2019-12-21 09:27 | P.VSCSTY ---
Greater Saphenous Vein Mapping This is bilateral lower extremity greater saphenous vein mapping. Date of service: 12/16/2019 Vein quality and ultrasound appearance: We see no intraluminal thrombus or wall changes. Vein size groin right : The 8.8 x 6.7 groin left: 7.9 x 6.9 High thigh right: 9.9 x 7.1 high thigh left: 3.5 x 3.4 Mid thigh right: 5.4 x 4.1 mid thigh left: 2.6 x 2.5 Above-knee right: 3.1 x 3.6 above- knee left: 2.3 x 2.3 Below knee right: 4.7 x 4.6 below-knee left: 2.2 x 2.2 Mid calf right: 3.7 x 3.3 mid calf left: 3.6 x 4.1 Ankle right: 2.7 x 2.3 ankle left: 2.1 x 1.6 Impression: Usable bilateral greater saphenous vein.
--- NOTE | 2019-12-21 09:28 | P.ARTDOP ---
Arterial Doppler LOWER EXTREMITY ARTERIAL DOPPLER: DATE OF SERVICE: 12/16/2019 Reason for study: Preop CABG. Doppler waveforms: Multiphasic bilaterally throughout. Pulse volume recording: []. Pressure gradients: None. Ankle-brachial indices: Greater than 1 bilaterally. Toe brachial indices: 0.74 on the right, 0.81 on the left Impression: Normal study.
== END | disposition home or self-care (01) ==
LOC: LABPAT 08:07
PROVIDERS: ATTEND Thoracic Surgery (Cardiothoracic Vascular Surgery)
DX: Z01.818 Encounter for other preprocedural examination (principal); Z20.828 Contact with and (suspected) exposure to other viral communicable diseases
CPT/HCPCS: 86920; 86900; 86901; 80061; 80053; 80074; 84443; 83735; 85027; 85610; 85730; 86850; 81003; 87070; 87086; 83036; 71046; 93970; 93923; 93880; 93005; 36415; U0003; C9803

== ENCOUNTER → 2020-03-15 | Outpatient (CLI) | payer OTHER ==
[2020-03-15 19:12] LABS: INR 1.82 (0.90-1.11); Prothrombin Time 18.8 sec (9.9-11.9)
== END | disposition home or self-care (01) ==
LOC: LABWHC1 13:38
PROVIDERS: ATTEND Internal Medicine
DX: Z95.2 Presence of prosthetic heart valve (principal); Z79.01 Long term (current) use of anticoagulants; Z91.048 Other nonmedicinal substance allergy status; Z91.018 Allergy to other foods; Z91.012 Allergy to eggs; Z91.013 Allergy to seafood; Z91.010 Allergy to peanuts; Z88.5 Allergy status to narcotic agent; Z88.0 Allergy status to penicillin; Z88.6 Allergy status to analgesic agent; Z91.030 Bee allergy status
CPT/HCPCS: 36415; 85610

== ENCOUNTER → 2021-02-18 | Outpatient (CLI) | payer OTHER ==
[2021-02-18 16:20] LABS: INR 2.61 (0.90-1.11); Prothrombin Time 28.2 sec (9.9-11.9)
== END | disposition home or self-care (01) ==
LOC: LABWHC1 09:47
PROVIDERS: ATTEND Internal Medicine
DX: Z51.81 Encounter for therapeutic drug level monitoring (principal); Z79.01 Long term (current) use of anticoagulants; Z95.2 Presence of prosthetic heart valve; I48.91 Unspecified atrial fibrillation
CPT/HCPCS: 36415; 85610

== ENCOUNTER → 2021-07-22 | Outpatient (CLI) | payer OTHER ==
--- NOTE | 2021-07-23 11:21 | MM ---
Reason for exam: screening (asymptomatic). Last mammogram was performed 3 years and 6 months ago. History: Family history of breast cancer in maternal cousin at age 40. Benign US biopsy breast VAD LT of the left breast, June 24, 2017. Physical Findings: A clinical breast exam by your physician is recommended on an annual basis and results should be correlated with mammographic findings. MG Screening Mammo w CAD Bilateral CC and MLO view(s) were taken. Prior study comparison: June 15, 2017, bilateral MG diagnostic mammo w CAD GIANNI. The breast tissue is heterogeneously dense. This may lower the sensitivity of mammography. There are benign appearing round calcifications in the left breast. Previous mammotome biopsy in the left breast. There is chronic nodularity in the left breast. There is no discrete abnormality. ASSESSMENT: Benign, BI-RAD 2 RECOMMENDATION: Routine screening mammogram of both breasts in 1 year.
== END | disposition home or self-care (01) ==
LOC: RADMAMWWP 13:14
PROVIDERS: ATTEND Family Medicine
DX: Z12.31 Encounter for screening mammogram for malignant neoplasm of breast (principal); Z80.3 Family history of malignant neoplasm of breast
CPT/HCPCS: 77067

== ENCOUNTER → 2021-09-11 | Outpatient (CLI) | payer OTHER ==
[2021-09-11 23:11] LABS: % Iron Saturation 16.31 (12.00-45.00); African American GFR (CKD) 92.9 (60.0-200.0); Albumin 3.7 g/dL (3.8-4.9); Albumin/Globulin Ratio 1.3 (1.60-3.17); Anion Gap 9.7 mmol/L (10.00-18.00); BUN/Creat Ratio 10.64 Ratio (12.00-20.00); Blood Urea Nitrogen 8.9 mg/dL (9.0-27.0); Calcium 8.8 mg/dL (8.7-10.3); Carbon Dioxide 23.9 mmol/L (20.0-27.5); Ferritin 34.2 ng/mL (10.0-291.0); Globulin 2.8 g/dL (1.6-3.3); Non-African American GFR(CKD) 80.1 (60.0-200.0); Potassium 3.8 mmol/L (3.5-5.5); Total Bilirubin 0.4 mg/dL (0.30-1.20); Total Protein 6.5 g/dL (6.2-8.2)
[2021-09-11 23:12] LABS: Basophils # (A) 0.08 X 10*3/uL (0.00-0.10); Basophils % (A) 0.8 %; Eosinophils # (A) 0.31 X 10*3/uL (0.04-0.35); Eosinophils % (A) 3.2 %; HGB 12.4 g/dL (12.0-15.0); Immature Grans, Automated 0.3 %; Lymphocytes # (A) 2.71 X 10*3/uL (0.90-5.00); Lymphocytes % (A) 27.9 %; MCH 28.8 pg (27.0-32.0); MCHC 31.8 g/dL (32.0-37.0); MCV 90.5 fL (80.0-97.0); Monocytes # (A) 0.76 X 10*3/uL (0.20-1.00); Monocytes % (A) 7.8 %; NRBC Per 100 WBC 0 /100 WBCS (0.0-0.0); Neutrophils # (A) 5.84 X 10*3/uL (1.80-7.70); Platelet Count 273 X 10*3/uL (140-440); RBC 4.31 X 10*6/uL (4.10-5.20); RDW 14.5 % (11.5-14.5); WBC 9.73 X 10*3/uL (4.50-10.00)
[2021-09-11 23:45] LABS: Hepatitis B Surface Antigen Nonreactive (Nonreactive); Hepatitis C IgG Antibody Nonreactive (Nonreactive)
[2021-09-12 00:28] LABS: Ceruloplasmin 27.6 mg/dL (20.0-60.0)
[2021-09-12 12:59] LABS: Alpha Lactalbumin IgE Class CLASS 0
== END | disposition home or self-care (01) ==
LOC: LABWHC1 14:48
PROVIDERS: ATTEND Internal Medicine Gastroenterology
DX: K76.0 Fatty (change of) liver, not elsewhere classified (principal); R74.01 Elevation of levels of liver transaminase levels
CPT/HCPCS: 36415; 80053; 82390; 82728; 83516; 83540; 83550; 85025; 86003; 86038; 86803; 87340

== ENCOUNTER → 2022-04-01 | Outpatient (CLI) | payer OTHER ==
[2022-04-01 18:35] LABS: HCT 38.8 % (37.2-46.3); HGB 12.7 g/dL (12.0-15.0); MCH 29.9 pg (27.0-32.0); MCHC 32.7 g/dL (32.0-37.0); MCV 91.3 fL (80.0-97.0); Mean Platelet Volume 11.8 fL (9.5-12.2); NRBC Per 100 WBC 0 /100 WBCS (0.0-0.0); Platelet Count 229 X 10*3/uL (140-440); RBC 4.25 X 10*6/uL (4.10-5.20); RDW 14.1 % (11.5-14.5); WBC 6.37 X 10*3/uL (4.50-10.00)
[2022-04-01 19:10] LABS: African American GFR (CKD) 74.5 (60.0-200.0); Albumin/Globulin Ratio 1.29 (1.60-3.17); Anion Gap 10.5 mmol/L (10.00-18.00); Carbon Dioxide 25.5 mmol/L (20.0-27.5); Globulin 3.1 g/dL (1.6-3.3); Non-African American GFR(CKD) 64.3 (60.0-200.0); Potassium 4.3 mmol/L (3.5-5.5); Total Bilirubin 0.6 mg/dL (0.30-1.20); Total Protein 7.1 g/dL (6.2-8.2)
[2022-04-01 19:28] LABS: Basophils # (A) 0.04 X 10*3/uL (0.00-0.10); Basophils % (A) 0.6 %; Eosinophils # (A) 0.37 X 10*3/uL (0.04-0.35); Eosinophils % (A) 5.8 %; Immature Grans, Automated 0.3 %; Lymphocytes # (A) 3.15 X 10*3/uL (0.90-5.00); Lymphocytes % (A) 49.5 %; Monocytes # (A) 0.42 X 10*3/uL (0.20-1.00); Monocytes % (A) 6.6 %; Neutrophils # (A) 2.37 X 10*3/uL (1.80-7.70); Neutrophils % (A) 37.2 %
== END | disposition home or self-care (01) ==
LOC: LABWHC1 12:05
PROVIDERS: ATTEND Nurse Practitioner Family
DX: K76.0 Fatty (change of) liver, not elsewhere classified (principal)
CPT/HCPCS: 36415; 80053; 85025

== ENCOUNTER → 2022-07-24 | Outpatient (CLI) | payer OTHER ==
--- NOTE | 2022-07-25 07:36 | MM ---
Reason for Exam: Screening (asymptomatic). Last screening mammogram was performed 12 month(s) ago. Patient History: Menarche at age 11. First Full-Term at age 20. Postmenopausal. 06/24/2017, Benign Core Biopsy on the left side. Maternal cousin had breast cancer, age 40. Risk Values: Mounika 5 year model risk: 1.2%. NCI Lifetime model risk: 9.0%. Prior Study Comparison: 06/24/2017 Left Diagnostic Mammogram, [facility]. 01/25/2018 Left Diagnostic Mammogram, [facility]. 07/22/2021 Bilateral Screening Mammogram, [facility]. Tissue Density: The breast tissue is heterogeneously dense. This may lower the sensitivity of mammography. Findings: Analyzed By CAD. Biopsy clip left breast redemonstrated. Stable small circumscribed round and lobulated masses within the left breast. Possible new 5 mm oval obscured mass in the middle depth central right breast on MLO image, less well seen on CC view. Overall Assessment: Incomplete: need additional imaging evaluation, BI-RAD 0 Management: Diagnostic Mammogram of the right breast. Return for additional spot MLO and true lateral views. [facility] will attempt to contact patient to return for supplemental views and ultrasound if indicated. 3-D imaging preferred. Patient should continue monthly self-breast exams. A clinical breast exam by your physician is recommended on an annual basis. This exam should not preclude additional follow-up of suspicious palpable abnormalities. Note on Mounika scores and lifetime risk: 1. A Mounika score greater than 3% is considered moderate risk. If this is the case, consider specialist referral to assess eligibility for a risk reducing agent. 2. If overall lifetime risk for the development of breast cancer is 20% or higher, the patient may qualify for future screening with alternating mammogram and breast MRI. Electronically signed and approved by: Leland Gilbert M.D.
== END | disposition home or self-care (01) ==
LOC: RADMAMWWP 13:24
PROVIDERS: ATTEND Family Medicine
DX: Z12.31 Encounter for screening mammogram for malignant neoplasm of breast (principal); Z78.0 Asymptomatic menopausal state; Z80.3 Family history of malignant neoplasm of breast; Z98.890 Other specified postprocedural states
CPT/HCPCS: 77067

== ENCOUNTER → 2022-07-28 | Outpatient (CLI) | payer OTHER ==
--- NOTE | 2022-07-28 09:45 | MM ---
Reason for Exam: Additional evaluation requested from abnormal screening. Last screening mammogram was performed less than 1 month ago. Patient History: Menarche at age 11. First Full-Term at age 20. Postmenopausal. 06/24/2017, Benign Core Biopsy on the left side. Maternal cousin had breast cancer, age 40. Risk Values: Mounika 5 year model risk: 1.2%. NCI Lifetime model risk: 9.0%. Prior Study Comparison: 06/15/2017 Bilateral Diagnostic Mammogram, [facility]. 06/15/2017 Bilateral Diagnostic Ultrasound, [facility]. 07/22/2021 Bilateral Screening Mammogram, [facility]. 07/24/2022 Bilateral MG screening mammo w CAD, [facility]. Tissue Density: Right: The breast tissue is heterogeneously dense. This may lower the sensitivity of mammography. Findings: Analyzed By CAD. A 4 mm obscured oval lesion possible mass does not go away on additional views. Overall Assessment: Incomplete: need additional imaging evaluation, BI-RAD 0 Management: Diagnostic Breast Ultrasound of the right breast. . Results were given to the patient verbally at the time of exam. Patient should continue monthly self-breast exams. A clinical breast exam by your physician is recommended on an annual basis. This exam should not preclude additional follow-up of suspicious palpable abnormalities. Note on Mounika scores and lifetime risk: 1. A Mounika score greater than 3% is considered moderate risk. If this is the case, consider specialist referral to assess eligibility for a risk reducing agent. 2. If overall lifetime risk for the development of breast cancer is 20% or higher, the patient may qualify for future screening with alternating mammogram and breast MRI. Electronically signed and approved by: Leland Gilbert M.D.
--- NOTE | 2022-07-28 10:14 | USB ---
Reason for Exam: Additional evaluation requested from abnormal screening. Patient History: Menarche at age 11. First Full-Term at age 20. Postmenopausal. 06/24/2017, Benign Core Biopsy on the left side. Maternal cousin had breast cancer, age 40. Risk Values: Mounika 5 year model risk: 1.2%. NCI Lifetime model risk: 9.0%. Technique: Method: Targeted. Prior Study Comparison: 06/15/2017 Bilateral Diagnostic Ultrasound, [facility]. 01/25/2018 Left Diagnostic Mammogram, [facility]. 07/22/2021 Bilateral Screening Mammogram, [facility]. 07/24/2022 Bilateral MG screening mammo w CAD, [facility]. Findings: The lower section of the breast of the right breast, the axilla of the right breast and the retroareolar of the right breast were scanned. Targeted ultrasound shows no worrisome solid or cystic mass or abnormal fluid collection. Overall Assessment: Probably benign, BI-RAD 3 Management: Diagnostic Mammogram of the right breast in 6 months. Precautionary short-term follow-up diagnostic right breast mammogram. Results were given to the patient verbally at the time of exam. Electronically signed and approved by: Leland Gilbert M.D.
== END | disposition home or self-care (01) ==
LOC: RADMAMWWP 09:16
PROVIDERS: ATTEND Family Medicine
DX: R92.8 Other abnormal and inconclusive findings on diagnostic imaging of breast (principal); Z80.3 Family history of malignant neoplasm of breast; Z78.0 Asymptomatic menopausal state
CPT/HCPCS: 77065; 76642; G0279; 77061

== ENCOUNTER → 2022-08-13 | Outpatient (CLI) | payer OTHER ==
[2022-08-13 21:17] LABS: Alternaria alternata IgE <0.10 kU/L; Birch IgE <0.10 kU/L; Cat Epith & Dander IgE <0.10 kU/L; Dog Dander IgE <0.10 kU/L; Elm IgE <0.10 kU/L; Oak IgE <0.10 kU/L; Ragweed,Common IgE <0.10 kU/L
[2022-08-13 23:58] LABS: Aspergillus fumagatus IgE <0.10 kU/L; Dermato. farinae IgE <0.10 kU/L
[2022-08-14 13:39] LABS: Clad herbarum IgE <0.10 kU/L (<0.10); Clad herbarum IgE Class CLASS 0
[2022-08-14 13:49] LABS: Bermuda Grass IgE <0.10 kU/L (<0.10); Pecan IgE <0.10 kU/L (<0.10); Pecan IgE Class CLASS 0
[2022-08-14 13:50] LABS: Meadow Fescue IgE <0.10 kU/L (<0.10); Meadow Fescue IgE Class CLASS 0; Meadow Grs (KY blue) IgE <0.10 kU/L (<0.10); Meadow Grs (KY blue) IgE Class CLASS 0; Penicillium notatum IgE Class CLASS 0; Sycamore(Mpl.Lf) IgE <0.10 kU/L (<0.10); Sycamore(Mpl.Lf) IgE Class CLASS 0; Timothy Grass IgE <0.10 kU/L (<0.10); Timothy Grass IgE Class CLASS 0
[2022-08-14 13:51] LABS: Beech IgE <0.10 kU/L (<0.10); Beech IgE Class CLASS 0; Cottonwood IgE <0.10 kU/L (<0.10); Goldenrod IgE <0.10 kU/L (<0.10); Goldenrod IgE Class CLASS 0; Lamb's Quarter IgE <0.10 kU/L (<0.10); Lamb's Quarter IgE Class CLASS 0; Sheep Sorrel IgE <0.10 kU/L (<0.10); Sheep Sorrel IgE Class CLASS 0; Willow Tree IgE <0.10 kU/L (<0.10); Willow Tree IgE Class CLASS 0
[2022-08-14 13:52] LABS: English Plantain IgE Class CLASS 0; Ragweed, Giant IgE <0.10 kU/L (<0.10); Ragweed, Giant IgE Class CLASS 0
== END | disposition home or self-care (01) ==
LOC: LABWHC1 11:27
PROVIDERS: ATTEND Internal Medicine
DX: J30.9 Allergic rhinitis, unspecified (principal)
CPT/HCPCS: 36415; 86003

== ENCOUNTER → 2022-09-29 | Outpatient (CLI) | payer OTHER ==
[2022-09-29 16:13] LABS: ALT 25 U/L (8-44); AST 22 U/L (13-35); Albumin/Globulin Ratio 1.29 Ratio (1.60-3.17); Alkaline Phosphatase 169 U/L (41-126); BUN/Creat Ratio 14.92 Ratio (12.00-20.00); Blood Urea Nitrogen 17.9 mg/dL (9.0-27.0); Calcium 9.2 mg/dL (8.7-10.3); Carbon Dioxide 28.3 mmol/L (21.6-31.8); Chloride 103 mmol/L (96-109); Globulin 3.1 d/dL (1.6-3.3); Glucose 97 mg/dL (70-110); Sodium 141 mmol/L (135-145); Total Bilirubin 0.6 mg/dL (0.3-1.2); Total Protein 7.1 d/dL (6.2-8.2)
[2022-09-29 18:20] LABS: Basophils # (A) 0.13 X 10*3/uL (0.00-0.10); Basophils % (A) 1.3 %; Eosinophils # (A) 0.61 X 10*3/uL (0.04-0.35); Eosinophils % (A) 6.1 %; HGB 12.9 d/dL (12.0-15.0); Lymphocytes # (A) 2.65 X 10*3/uL (0.90-5.00); Lymphocytes % (A) 26.4 %; MCH 30.7 pg (27.0-32.0); MCHC 32.3 d/dL (32.0-37.0); MCV 95.2 FL (80.0-97.0); Mean Platelet Volume 11.6 FL (9.5-12.2); Monocytes # (A) 0.71 X 10*3/uL (0.20-1.00); Monocytes % (A) 7.1 %; NRBC Per 100 WBC 0 X 10*3/uL (0.00-0.01); Neutrophils # (A) 5.93 X 10*3/uL (1.80-7.70); Neutrophils % (A) 58.9 %; Platelet Count 267 X 10*3/uL (140-440); RDW 14.9 % (11.5-14.5); WBC 10.05 X 10*3/uL (4.50-10.00)
== END | disposition home or self-care (01) ==
LOC: LABWHC1 10:10
PROVIDERS: ATTEND Internal Medicine Gastroenterology
DX: K76.0 Fatty (change of) liver, not elsewhere classified (principal)
CPT/HCPCS: 36415; 80053; 85025

== ENCOUNTER 2022-10-29 20:59 | Emergency (ER) | payer OTHER ==
[2022-10-29] MEDS ORDERED: ACET/COD 300 MG/30 MG STARTER PACK 6 TAB BTL PO STA (22:50)
[2022-10-29] MEDS ORDERED: DIPH,PERTUS(ACELL)TETVAC-LF 0.5 ML VIAL IM ONE (22:50)
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
[2022-10-29] MEDS ORDERED: MUPIROCIN 2% OINT 22 GM TUBE TOPICAL STA (22:58)
[2022-10-29] MEDS ORDERED: MUPIROCIN 2% OINT 22 GM TUBE TOPICAL SCH (23:00)
[2022-10-29] MEDS ORDERED: Acetaminophen-Codeine 300-30mg TAB PO STA (23:02)
[2022-10-29 23:51] VITALS: BP 179/83; PULSE 88; RESP 18; TEMP 98.1
== END 2022-10-29 23:35 | disposition home or self-care (01) ==
LOC: EC 20:59
DX: T21.21XA Burn of second degree of chest wall, initial encounter (principal); I10 Essential (primary) hypertension; F41.9 Anxiety disorder, unspecified; F32.A Depression, unspecified; F17.200 Nicotine dependence, unspecified, uncomplicated; Z79.82 Long term (current) use of aspirin; Z79.899 Other long term (current) drug therapy; Z91.012 Allergy to eggs; Z91.013 Allergy to seafood; Z91.018 Allergy to other foods; Z88.8 Allergy status to other drugs, medicaments and biological substances; Z23 Encounter for immunization
CPT/HCPCS: 90471; 90715; 99283

== ENCOUNTER → 2022-11-12 | Outpatient (CLI) | payer OTHER ==
[2022-11-13 04:12] LABS: Birch IgE <0.10 kU/L; Cat Epith & Dander IgE <0.10 kU/L; Elm IgE <0.10 kU/L; Oak IgE <0.10 kU/L
[2022-11-13 04:13] LABS: Ragweed,Common IgE <0.10 kU/L
[2022-11-13 04:15] LABS: Alternaria alternata IgE <0.10 kU/L; Dog Dander IgE <0.10 kU/L; Maple (Box Elder) IgE <0.10 kU/L
[2022-11-13 11:58] LABS: Bermuda Grass IgE <0.10 kU/L (<0.10); Meadow Fescue IgE <0.10 kU/L (<0.10); Meadow Fescue IgE Class CLASS 0; Pecan IgE <0.10 kU/L (<0.10); Pecan IgE Class CLASS 0
[2022-11-13 11:59] LABS: Timothy Grass IgE <0.10 kU/L (<0.10); Timothy Grass IgE Class CLASS 0
[2022-11-13 12:00] LABS: Meadow Grs (KY blue) IgE <0.10 kU/L (<0.10); Meadow Grs (KY blue) IgE Class CLASS 0; Penicillium notatum IgE Class CLASS 0; Sycamore(Mpl.Lf) IgE <0.10 kU/L (<0.10); Sycamore(Mpl.Lf) IgE Class CLASS 0
[2022-11-13 12:01] LABS: Cottonwood IgE <0.10 kU/L (<0.10); Willow Tree IgE <0.10 kU/L (<0.10); Willow Tree IgE Class CLASS 0
[2022-11-13 12:02] LABS: Beech IgE <0.10 kU/L (<0.10); Beech IgE Class CLASS 0; Sheep Sorrel IgE <0.10 kU/L (<0.10); Sheep Sorrel IgE Class CLASS 0
[2022-11-13 12:03] LABS: English Plantain IgE Class CLASS 0; Goldenrod IgE <0.10 kU/L (<0.10); Goldenrod IgE Class CLASS 0; Ragweed, Giant IgE <0.10 kU/L (<0.10); Ragweed, Giant IgE Class CLASS 0
== END | disposition home or self-care (01) ==
LOC: LABWHC1 11:02
PROVIDERS: ATTEND Internal Medicine
DX: J31.0 Chronic rhinitis (principal)
CPT/HCPCS: 36415; 86003

== ENCOUNTER → 2023-02-11 | Outpatient (CLI) | payer OTHER ==
[2023-02-12 01:54] LABS: Alternaria alternata IgE <0.10 kU/L; Aspergillus fumagatus IgE <0.10 kU/L; Birch IgE <0.10 kU/L; Cat Epith & Dander IgE <0.10 kU/L; Dermato. farinae IgE <0.10 kU/L; Dog Dander IgE <0.10 kU/L; Elm IgE <0.10 kU/L; Oak IgE <0.10 kU/L; Ragweed,Common IgE <0.10 kU/L
[2023-02-12 13:27] LABS: Bermuda Grass IgE <0.10 kU/L (<0.10); Meadow Fescue IgE <0.10 kU/L (<0.10); Meadow Fescue IgE Class CLASS 0; Pecan IgE <0.10 kU/L (<0.10); Pecan IgE Class CLASS 0; Timothy Grass IgE <0.10 kU/L (<0.10); Timothy Grass IgE Class CLASS 0
[2023-02-12 13:28] LABS: Clad herbarum IgE <0.10 kU/L (<0.10); Clad herbarum IgE Class CLASS 0; House Dust (H-S) IgE <0.10 kU/L (<0.10); House Dust (H-S) IgE Class CLASS 0; Meadow Grs (KY blue) IgE <0.10 kU/L (<0.10); Meadow Grs (KY blue) IgE Class CLASS 0; Penicillium notatum IgE Class CLASS 0
[2023-02-12 13:29] LABS: Beech IgE <0.10 kU/L (<0.10); Beech IgE Class CLASS 0; Cottonwood IgE <0.10 kU/L (<0.10); Sycamore(Mpl.Lf) IgE <0.10 kU/L (<0.10); Sycamore(Mpl.Lf) IgE Class CLASS 0; Willow Tree IgE <0.10 kU/L (<0.10); Willow Tree IgE Class CLASS 0
[2023-02-12 13:30] LABS: English Plantain IgE Class CLASS 0; Goldenrod IgE <0.10 kU/L (<0.10); Goldenrod IgE Class CLASS 0; Lamb's Quarter IgE <0.10 kU/L (<0.10); Lamb's Quarter IgE Class CLASS 0; Ragweed, Giant IgE <0.10 kU/L (<0.10); Ragweed, Giant IgE Class CLASS 0; Sheep Sorrel IgE <0.10 kU/L (<0.10); Sheep Sorrel IgE Class CLASS 0
== END | disposition home or self-care (01) ==
LOC: LABWHC1 12:04
PROVIDERS: ATTEND Internal Medicine
DX: J31.0 Chronic rhinitis (principal)
CPT/HCPCS: 36415; 86003

== ENCOUNTER → 2023-02-17 | Outpatient (CLI) | payer OTHER ==
--- NOTE | 2023-02-17 15:16 | MM ---
Reason for Exam: Follow-up at short interval from prior study. Last screening mammogram was performed 7 month(s) ago. Patient History: Menarche at age 11. First Full-Term at age 20. Postmenopausal. 06/24/2017, Benign Core Biopsy on the left side. Maternal cousin had breast cancer, age 40. Risk Values: Mounika 5 year model risk: 1.2%. NCI Lifetime model risk: 8.8%. Prior Study Comparison: 07/22/2021 Bilateral Screening Mammogram, [facility]. 07/24/2022 Bilateral MG screening mammo w CAD, [facility]. 07/28/2022 Right MG 3D work up w/cad RT, [facility]. Tissue Density: Right: There are scattered fibroglandular densities. Findings: Analyzed By CAD. The medial focal asymmetry approximately the 2 to 3:00 position appears similar to recent priors. Ongoing short interval follow-up recommended. Otherwise, no significant change. Overall Assessment: Probably benign, BI-RAD 3 Management: Diagnostic Mammogram of both breasts in 6 months. Total two-year follow-up right breast and annual exam of the left breast. Results were given to the patient verbally at the time of exam. Patient should continue monthly self-breast exams. A clinical breast exam by your physician is recommended on an annual basis. This exam should not preclude additional follow-up of suspicious palpable abnormalities. Note on Mounika scores and lifetime risk: 1. A Mounika score greater than 3% is considered moderate risk. If this is the case, consider specialist referral to assess eligibility for a risk reducing agent. 2. If overall lifetime risk for the development of breast cancer is 20% or higher, the patient may qualify for future screening with alternating mammogram and breast MRI. Electronically signed and approved by: Ron Weir M.D. Radiologist
== END | disposition home or self-care (01) ==
LOC: RADMAMWWP 14:42
PROVIDERS: ATTEND Student in an Organized Health Care Education/Training Program
DX: R92.321 Mammographic fibroglandular density, right breast (principal); Z78.0 Asymptomatic menopausal state; Z80.3 Family history of malignant neoplasm of breast
CPT/HCPCS: 77065; G0279; 77061

== ENCOUNTER → 2023-09-02 | Outpatient (CLI) | payer OTHER ==
--- NOTE | 2023-09-02 14:37 | MM ---
Reason for Exam: Additional evaluation requested from prior study. Last mammogram was performed 1 year(s) and 2 month(s) ago. Patient History: Menarche at age 11. First Full-Term at age 20. Postmenopausal. 06/24/2017, Benign Core Biopsy on the left side. Maternal cousin had breast cancer, age 40. Risk Values: Mounika 5 year model risk: 1.2%. NCI Lifetime model risk: 8.8%. Prior Study Comparison: 06/15/2017 Bilateral Diagnostic Mammogram, [facility]. 06/24/2017 Left Diagnostic Mammogram, [facility]. 01/25/2018 Left Diagnostic Mammogram, [facility]. 07/22/2021 Bilateral Screening Mammogram, [facility]. 07/24/2022 Bilateral MG screening mammo w CAD, [facility]. 07/28/2022 Right MG 3D work up w/cad RT, [facility]. 02/17/2023 Right MG 3D diag mammo w/cad RT, [facility]. Tissue Density: There are scattered areas of fibroglandular density. Findings: Analyzed By CAD. Unchanged bilateral areas of asymmetric density and chronic nodularity on the left. Microclip left breast from prior biopsy. No significant change from prior exams. Overall Assessment: Benign, BI-RAD 2 Management: Screening Mammogram of both breasts in 1 year. . Results were given to the patient verbally at the time of exam. Patient should continue monthly self-breast exams. A clinical breast exam by your physician is recommended on an annual basis. This exam should not preclude additional follow-up of suspicious palpable abnormalities. Note on Mounika scores and lifetime risk: 1. A Mounika score greater than 3% is considered moderate risk. If this is the case, consider specialist referral to assess eligibility for a risk reducing agent. 2. If overall lifetime risk for the development of breast cancer is 20% or higher, the patient may qualify for future screening with alternating mammogram and breast MRI. Electronically signed and approved by: Ron Weir M.D. Radiologist
== END | disposition home or self-care (01) ==
LOC: RADMAMWWP 13:51
PROVIDERS: ATTEND Student in an Organized Health Care Education/Training Program
DX: R92.323 Mammographic fibroglandular density, bilateral breasts (principal); N63.20 Unspecified lump in the left breast, unspecified quadrant; N63.10 Unspecified lump in the right breast, unspecified quadrant; Z80.3 Family history of malignant neoplasm of breast; Z78.0 Asymptomatic menopausal state
CPT/HCPCS: 77066; G0279; 77062

== ENCOUNTER → 2023-12-07 | Outpatient (CLI) | payer OTHER ==
[2023-12-07 15:24] LABS: Basophils # (A) 0.08 X 10*3/uL (0.00-0.10); Basophils % (A) 0.9 %; Eosinophils # (A) 0.38 X 10*3/uL (0.04-0.35); Eosinophils % (A) 4.1 %; HCT 39.6 % (37.2-46.3); HGB 13.1 g/dL (12.0-15.0); Lymphocytes % (A) 29.3 %; MCH 31.6 pg (27.0-32.0); MCHC 33.1 g/dL (32.0-37.0); MCV 95.4 FL (80.0-97.0); Mean Platelet Volume 11.6 FL (9.5-12.2); Monocytes % (A) 6.5 %; NRBC Per 100 WBC 0 X 10*3/uL (0.00-0.01); Neutrophils % (A) 58.7 %; Platelet Count 251 X 10*3/uL (140-440); RBC 4.15 X 10*6/uL (4.10-5.20); RDW 13.8 % (11.5-14.5); WBC 9.21 X 10*3/uL (4.50-10.00)
[2023-12-07 15:41] LABS: ALT 31 U/L (8-44); AST 27 U/L (13-35); Albumin 3.9 g/dL (3.8-4.9); Albumin/Globulin Ratio 1.56 Ratio (1.60-3.17); Alkaline Phosphatase 164 U/L (41-126); BUN/Creat Ratio 13.67 Ratio (12.00-20.00); Blood Urea Nitrogen 12.3 mg/dL (9.0-27.0); Calcium 9.1 mg/dL (8.7-10.3); Carbon Dioxide 27.6 mmol/L (21.6-31.8); Chloride 106 mmol/L (96-109); Globulin 2.5 g/dL (1.6-3.3); Glucose 143 mg/dL (70-110); Potassium 3.8 mmol/L (3.5-5.5); Sodium 143 mmol/L (135-145); Total Bilirubin 0.8 mg/dL (0.3-1.2); Total Protein 6.4 g/dL (6.2-8.2)
== END | disposition home or self-care (01) ==
LOC: LABWHC1 09:17
PROVIDERS: ATTEND Internal Medicine Gastroenterology
DX: K76.0 Fatty (change of) liver, not elsewhere classified (principal)
CPT/HCPCS: 36415; 80053; 85025

== ENCOUNTER 2024-01-12 18:20 | Emergency (ER) | payer OTHER ==
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
[2024-01-12] MEDS: ONDANSETRON ODT 4 MG TAB PO STA (18:45)
[2024-01-12] MEDS: MORPHINE SULFATE 4 MG/ML SYRINGE IM STA (18:50)
[2024-01-12] MEDS: HYDROmorphone 1 MG/ML 1 ML SYRINGE IM STA (18:56)
[2024-01-12 19:06] VITALS: RESP 18
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
[2024-01-12 20:08] VITALS: BP 154/86; PULSE 72; TEMP 97.9
== END 2024-01-12 20:08 | disposition home or self-care (01) ==
LOC: EC 18:20
CPT/HCPCS: 96372; 99283

== ENCOUNTER → 2024-01-25 | Outpatient (CLI) | payer OTHER ==
--- NOTE | 2024-01-25 13:21 | CT ---
EXAMINATION TYPE: CT cervical spine wo con CT DLP: 597.9 mGycm, Automated exposure control for dose reduction was used. DATE OF EXAM: 01/25/2024 1:03 PM COMPARISON: None. CLINICAL INDICATION:Female, 53 years old with history of M54.12 M54.2 R29.898 Z79.82; [facility], Radiculopa thy. Cervicalgia. TECHNIQUE: Axial CT images from the skull base to the inferior aspect of T2 we obtained without intra venous contrast. Coronal and sagittal reformatted images were also reviewed. FINDINGS: Fracture: None. Osseous structures: Multilevel degenerative disc disease changes with endplate spurring and disc oste ophyte complex's. Postsurgical changes from anterior cervical fusion of C5-C7 with disc spacers. Hard paredes appears intact with appropriate alignment. Median sternotomy wires. Vertebral alignment: Within normal limits. Spinal canal/Neural Foramina: Posterior disc osteophyte complex at C2-C3 without significant effaceme nt of the anterior thecal sac. Broad-based disc bulge without significant effacement of the anterior thecal sac at C3-C4. Eccentric left disc bulge with mild effacement of the anterior thecal sac at C4- C5. Evaluation from C5 through C7 is limited due to artifact from fusion hardware. No gross evidence of significant central canal stenosis at these levels. Posterior disc osteophyte complex at C7-T1 wit h at least mild central canal stenosis. Right-sided facet arthropathy at C4-C5 with mild neural steve inal narrowing. Uncovertebral joint hypertrophy at C5-C6 with moderate bilateral neural foraminal michel rowing. Uncovertebral joint hypertrophy at C6-C7 with mild bilateral neural foraminal narrowing. Neck soft tissues: Prevertebral soft tissues are within normal limits. Other: The airway is patent. The lung apices are clear. Moderate mucosal thickening of the right maxi llary sinus. IMPRESSION: 1. No evidence of cervical spine fracture. 2. Postsurgical changes from ACDF C5-C7. Hardware appears intact and the pleural line. 3. Mild multilevel degenerative disc disease as described above. [facility], , 01/25/2024 1:19 PM
== END | disposition home or self-care (01) ==
LOC: RADCTMAIN 12:47
PROVIDERS: ATTEND Nurse Practitioner
CPT/HCPCS: 72125

== ENCOUNTER → 2024-06-06 | Outpatient (CLI) | payer OTHER ==
[2024-06-06 15:17] LABS: Basophils # (A) 0.07 X 10*3/uL (0.00-0.10); Basophils % (A) 0.6 %; Eosinophils % (A) 2.6 %; HCT 40.5 % (37.2-46.3); HGB 13.7 g/dL (12.0-15.0); Lymphocytes % (A) 17.5 %; MCH 32.1 pg (27.0-32.0); MCHC 33.8 g/dL (32.0-37.0); MCV 94.8 FL (80.0-97.0); Mean Platelet Volume 11.5 FL (9.5-12.2); Monocytes # (A) 0.68 X 10*3/uL (0.20-1.00); Monocytes % (A) 5.9 %; NRBC Per 100 WBC 0 X 10*3/uL (0.00-0.01); Neutrophils # (A) 8.37 X 10*3/uL (1.80-7.70); Neutrophils % (A) 73.1 %; Platelet Count 250 X 10*3/uL (140-440); RBC 4.27 X 10*6/uL (4.10-5.20); RDW 12.4 % (11.5-14.5); WBC 11.46 X 10*3/uL (4.50-10.00)
[2024-06-06 15:32] LABS: ALT 21 U/L (8-44); AST 20 U/L (13-35); Albumin 3.9 g/dL (3.8-4.9); Albumin/Globulin Ratio 1.56 Ratio (1.60-3.17); Alkaline Phosphatase 205 U/L (41-126); Blood Urea Nitrogen 10.8 mg/dL (9.0-27.0); Calcium 9.1 mg/dL (8.7-10.3); Carbon Dioxide 26.6 mmol/L (21.6-31.8); Chloride 106 mmol/L (96-109); Globulin 2.5 g/dL (1.6-3.3); Glucose 108 mg/dL (70-110); Potassium 4.2 mmol/L (3.5-5.5); Sodium 141 mmol/L (135-145); Total Bilirubin 0.6 mg/dL (0.3-1.2); Total Protein 6.4 g/dL (6.2-8.2)
== END | disposition home or self-care (01) ==
LOC: LABWHC1 11:44
PROVIDERS: ATTEND Internal Medicine Gastroenterology
DX: K76.0 Fatty (change of) liver, not elsewhere classified (principal)
CPT/HCPCS: 36415; 80053; 85025

== ENCOUNTER → 2024-09-08 | Outpatient (CLI) | payer OTHER ==
--- NOTE | 2024-09-08 13:40 | MM ---
Reason for Exam: Screening (asymptomatic). Last screening mammogram was performed 12 month(s) ago. Patient History: Menarche at age 11. First Full-Term at age 20. Postmenopausal. 06/24/2017, Benign Core Biopsy on the left side. Maternal cousin had breast cancer, age 40. Risk Values: Mounika 5 year model risk: 1.2%. NCI Lifetime model risk: 8.7%. Prior Study Comparison: 07/28/2022 Right MG 3D work up w/cad RT, [facility]. 02/17/2023 Right MG 3D diag mammo w/cad RT, [facility]. 09/02/2023 Bilateral MG 3D diag mammo w/cad [facility], [facility]. Tissue Density: The breasts are heterogeneously dense, which may obscure small masses. Findings: Analyzed By CAD. There is no suspicious group of microcalcifications or new suspicious mass in either breast. Stable chronic nodularity change. Surgical clips noted in the left breast. Overall Assessment: Benign, BI-RAD 2 Management: Screening Mammogram of both breasts in 1 year. . Patient should continue monthly self-breast exams. A clinical breast exam by your physician is recommended on an annual basis. This exam should not preclude additional follow-up of suspicious palpable abnormalities. Note on Mounika scores and lifetime risk: 1. A Mounika score greater than 3% is considered moderate risk. If this is the case, consider specialist referral to assess eligibility for a risk reducing agent. 2. If overall lifetime risk for the development of breast cancer is 20% or higher, the patient may qualify for future screening with alternating mammogram and breast MRI. [facility], , 09/08/2024 1:36 PM. Electronically signed and approved by: Obdulio Noble M.D. Radiolog[facility]
== END | disposition home or self-care (01) ==
LOC: RADMAMWWP 13:12
PROVIDERS: ATTEND Family Medicine
DX: Z12.31 Encounter for screening mammogram for malignant neoplasm of breast (principal); R92.333 Mammographic heterogeneous density, bilateral breasts; Z78.0 Asymptomatic menopausal state; Z80.3 Family history of malignant neoplasm of breast
CPT/HCPCS: 77067